=== PATIENT | female | born 1970 | race American Indian/Alaskan Native ===

== ENCOUNTER 2017-02-11 10:58 | Outpatient (CLI) | payer BC ==
--- NOTE | 2017-02-11 14:52 | Cat Scan Report ---
CT ABDOMEN AND PELVIS WITHOUT CONTRAST: 02/11/17 10:58:00 CLINICAL:Right-sided abdominal pain. COMPARISON: 11/05/15 TECHNIQUE: Volumetric acquisition and 1.25 millimeter axial scan reconstructions from the lung bases through the iliac crest. The study was performed with oral contrast only are to. FINDINGS: Abdomen:Clear lung bases. Normal liver, bile ducts and gallbladder. Status post gastric bypass with normal appearance of the stomach. Normal duodenum, pancreas and spleen. Normal adrenal glands and kidneys. The renal collecting systems and ureters are nondilated. No renal mass, cyst or calculus. No ascites and no pneumoperitoneum. The small bowel and colon are normal. An appendix is not identified. Rectus diastasis and a ventral abdominal mesh graft. 2 small supraumbilical ventral abdominal wall defects are unchanged. The largest is 2.3 cm wide the transverse colon is adjacent to the defect but bowel does not extend through the defect. Pelvis: Normal urinary bladder and rectum.Absence of uterus and normal vaginal cuff. The left ovary is enlarged and has homogeneous density measuring 42 Hounsfield units. It measures 4.8 x 4.2 x 4.4 cm. A right ovary is not identified. Bone windows demonstrate no suspicious bone lesion. IMPRESSION: 1. Status post gastric bypass. 2. 2 stable small supraumbilical ventral abdominal wall defects with no bowel extending through the defects. 3. Enlarged left ovary with no identifiable cyst. Recommend pelvic ultrasound for further evaluation.
== END 2017-02-11 10:59 | disposition home or self-care (01) ==
LOC: SPVIMAG 10:58
PROVIDERS: ATTEND Internal Medicine
DX: N83.8 Other noninflammatory disorders of ovary, fallopian tube and broad ligament (principal); Z90.710 Acquired absence of both cervix and uterus; Z98.890 Other specified postprocedural states
CPT/HCPCS: 74176

== ENCOUNTER 2020-07-25 09:54 | Outpatient (CLI) | payer BC ==
[2020-07-25 10:31] LABS: Hematocrit 36.8 % (30.3-42.9); Hemoglobin 12.5 gm/dl (10.1-14.3); Mean Corpuscular HGB Conc 34 % (30-34); Mean Corpuscular Volume 91 fl (79-97); Platelet Count 254 K/mm3 (140-440); Red Blood Count 4.03 M/mm3 (3.65-5.03); Red Cell Distribution Width 12.7 % (13.2-15.2)
[2020-07-25 10:35] LABS: Creatinine,Urine 303.3 mg/dL (0.1-20.0); Microalbumin/Creatinine Ratio 18.7 ug/mg
[2020-07-25 10:54] LABS: Alanine Aminotransferase 12 units/L (7-56); Blood Urea Nitrogen 12 mg/dL (7-17); Calcium 9.2 mg/dL (8.4-10.2); Chol/HDL Ratio 2.31 %; HDL Cholesterol 67 mg/dL (40-59); Hemolysis Index 5; LDL Cholesterol,Direct 85 mg/dL (50-130)
[2020-07-25 10:56] LABS: BUN/Creatinine Ratio 17
[2020-07-25 11:27] LABS: Free T4 (Free Thyroxine) 1.14 ng/dL (0.76-1.46)
[2020-07-28 14:14] LABS: Vitamin D, 25-OH, D2 <4 ng/mL
== END 2020-07-25 09:55 | disposition home or self-care (01) ==
LOC: LAB 09:54
PROVIDERS: ATTEND Internal Medicine
DX: I10 Essential (primary) hypertension (principal); E11.9 Type 2 diabetes mellitus without complications; E78.5 Hyperlipidemia, unspecified; E07.9 Disorder of thyroid, unspecified; E55.9 Vitamin D deficiency, unspecified; R53.83 Other fatigue; Z79.899 Other long term (current) drug therapy
CPT/HCPCS: 36415; 80053; 80061; 82043; 82306; 83036; 84439; 84443; 85027

== ENCOUNTER 2021-01-17 12:06 | Emergency (ER) | payer BC ==
--- NOTE | 2021-01-17 13:28 | Event Note ---
ED Screening Note Date of service: 01/17/21 Time: 13:26 ED Screening Note: 50-year-old female patient with history of diabetes and hypertension presents to the emergency department with complaints of nontraumatic left lower extremity pain starting last week. Patient has a history of sciatica but states this pain is different. No preceding fall or injury. No venous thromboembolism risk factors identified on history. No chest pain or shortness of breath. No numbness or paresthesias. No skin color changes. General: Awake, appropriately interactive, no acute distress. Neck: Supple. Full range of motion intact. Cardiovascular: Normal peripheral perfusion. No lower extremity edema. Pulmonary: No respiratory distress. Patient is speaking normally without use of accessory muscles. Skin: No apparent rashes or lesions. Neurological: No facial asymmetry. Speech is clear. Follows commands. Patient is alert and oriented. Musculoskeletal: Moves all four extremities spontaneously with normal range of motion. Psych: Cooperative. Appropriate mood and affect. Low pre-test probability for venous thromboembolism per Wells criteria; patient is an appropriate candidate for D-dimer testing. I have greeted and performed a focused rapid initial assessment of this patient. A comprehensive ED assessment and evaluation of the patient, analysis of all test results, and completion of the medical decision-making process will be conducted by additional ED providers. This initial assessment/diagnostic orders/clinical plan/treatment(s) is/are subject to change based on patients health status, clinical progression and re-assessment. Further treatment and workup at subsequent clinical provider's discretion. Patient/guardian urged not to elope from the ED as their condition may be serious if not clinically assessed and managed.
[2021-01-17 14:22] LABS: Basophils % (Auto) 0.4 % (0.0-1.8); Eosinophils # (Auto) 0.1 K/mm3 (0.0-0.4); Eosinophils % (Auto) 1.1 % (0.0-4.3); Hematocrit 37.8 % (30.3-42.9); Hemoglobin 12.9 gm/dl (10.1-14.3); Lymphocytes # (Auto) 1.7 K/mm3 (1.2-5.4); Mean Corpuscular HGB Conc 34 % (30-34); Mean Corpuscular Volume 91 fl (79-97); Monocytes # (Auto) 0.6 K/mm3 (0.0-0.8); Monocytes % (Auto) 9.3 % (0.0-7.3); Platelet Count 235 K/mm3 (140-440); Red Blood Count 4.16 M/mm3 (3.65-5.03); Red Cell Distribution Width 12.9 % (13.2-15.2)
[2021-01-17 14:30] LABS: Blood Urea Nitrogen 17 mg/dL (7-17); Calcium 9.5 mg/dL (8.4-10.2); Hemolysis Index 2
[2021-01-17 14:34] LABS: BUN/Creatinine Ratio 28
[2021-01-17] MEDS ORDERED: HYDROcodone/ACETAMINOPHEN 10-325MG TAB PO ONE (17:26)
[2021-01-17] MEDS ORDERED: KETOROLAC 60 MG/2 ML INJ IM ONE (17:26)
--- NOTE | 2021-01-17 18:36 | Emergency Department Report ---
ED Back Pain/Injury HPI - General Chief Complaint: Extremity Problem,Nontraumatic Stated Complaint: LT LEG PAIN Time Seen by Provider: 01/17/21 17:13 Source: patient Limitations: No Limitations - History of Present Illness Initial Comments: This is a 50-year-old female nontoxic, well nourished in appearance, no acute signs of distress presents to the ED with c/o of acute on chronic lower back pain with radiation to left lower leg x1 week. Patient states has history of sciatica nerve pain which is similar symptoms as today. Patient states that pain radiates through to his left lower extremity. Patient denies any trauma. Denies any bladder or bowel instability. Patient denies any urinary symptoms. Denies any fever, chills, nausea, vomiting, headache, stiff neck, chest pain or shortness of breath. Patient denies any numbness or tingling. Patient stated allergies to nitroglycerin. MD Complaint: back pain -: week(s) Similar Symptoms Previously: Yes Radiation: left leg Severity: mild Severity scale (0 -10): 8 Quality: aching Consistency: intermittent Improves With: immobilization, sitting upright Worsens With: movement, walking Context: while lifting, turning/twisting Associated Symptoms: denies other symptoms. denies: confusion, weakness, chest pain, numbness, difficulty walking, cough, difficulty urinating, diaphoresis, incontinence, fever/chills, constipation, headaches, abdominal pain, loss of appetite, malaise, nausea/vomiting, rash, seizure, shortness of breath, syncope - Related Data Home Medications Medication Instructions Recorded Confirmed Last Taken Metoprolol [Lopressor TAB] 100 mg PO DAILY 12/11/13 10/10/18 11/04/15 amLODIPine 10 mg PO DAILY 12/11/13 10/10/18 11/04/15 Atorvastatin Calcium [Lipitor] 20 mg PO DAILY 09/20/14 10/10/18 11/04/15 Multivitamin with Folic Acid [One 400 mcg PO DAILY 08/19/15 10/10/18 11/04/15 Daily Multivitamin Tablet] Calcium Carbonate/Vitamin D3 1 each PO DAILY 10/10/18 10/10/18 Unknown [Calcium 600-Vit D3 800 Caplet] Cholecalciferol (Vitamin D3) 3,000 unit PO DAILY 10/10/18 10/10/18 Unknown [Vitamin D3 3,000 unit] Glimepiride [Amaryl] 1 mg PO DAILY 10/10/18 10/10/18 Unknown Magnesium Oxide [Magnesium] 500 mg PO DAILY 10/10/18 10/10/18 Unknown Whiting-3 Fatty Acids/Fish Oil [Fish 1 each PO DAILY 10/10/18 10/10/18 Unknown Oil] Valsartan/Hydrochlorothiazide 1 each PO DAILY 10/10/18 10/10/18 Unknown [Diovan Hct 320-25 mg Tablet] Previous Rx's Medication Instructions Recorded Last Taken Type Famotidine [Pepcid] 10 mg PO BID #60 tablet 10/14/18 Unknown Rx Cyclobenzaprine [Flexeril] 10 mg PO QHS PRN #10 tablet 01/17/21 Unknown Rx Naproxen 500 mg PO Q12H PRN #12 tablet 01/17/21 Unknown Rx Allergies Allergy/AdvReac Type Severity Reaction Status Date / Time nitroglycerin AdvReac Shortness Verified 10/10/18 20:36 [From Nitroglyn] of Breath ED Review of Systems ROS: Stated complaint: LT LEG PAIN Other details as noted in HPI Constitutional: denies: chills, fever Eyes: denies: eye pain, eye discharge, vision change ENT: denies: ear pain, throat pain Respiratory: denies: cough, shortness of breath, wheezing Cardiovascular: denies: chest pain, palpitations Endocrine: no symptoms reported Gastrointestinal: denies: abdominal pain, nausea, diarrhea Genitourinary: denies: urgency, dysuria, discharge Musculoskeletal: back pain. denies: joint swelling, arthralgia Skin: denies: rash, lesions Neurological: denies: headache, weakness, paresthesias Psychiatric: denies: anxiety, depression Hematological/Lymphatic: denies: easy bleeding, easy bruising ED Past Medical Hx - Past Medical History Hx Hypertension: Yes Hx Heart Attack/AMI: No Hx Congestive Heart Failure: No Hx Diabetes: Yes Hx Deep Vein Thrombosis: No Hx GERD: Yes Hx Liver Disease: No Hx Seizures: No Hx Asthma: No Hx COPD: No Hx Dementia: No Additional medical history: History of anemia with recurrent blood transfusions for metromenorrhagia, however that has resolved since the hysterectomy. - Surgical History Hx Coronary Stent: No Hx Pacemaker: No Hx Internal Defibrillator: No Hx Breast Surgery: Yes (DEBORAH BREAST REDUCTION 2006) Additional Surgical History: Hysterectomy 2011, Gastric sleeve 2013 - Social History Smoking Status: Never Smoker Substance Use Type: None - Medications Home Medications: Home Medications Medication Instructions Recorded Confirmed Last Taken Type Metoprolol [Lopressor TAB] 100 mg PO DAILY 12/11/13 10/10/18 11/04/15 History amLODIPine 10 mg PO DAILY 12/11/13 10/10/18 11/04/15 History Atorvastatin Calcium [Lipitor] 20 mg PO DAILY 09/20/14 10/10/18 11/04/15 History Multivitamin with Folic Acid [One 400 mcg PO DAILY 08/19/15 10/10/18 11/04/15 History Daily Multivitamin Tablet] Calcium Carbonate/Vitamin D3 1 each PO DAILY 10/10/18 10/10/18 Unknown History [Calcium 600-Vit D3 800 Caplet] Cholecalciferol (Vitamin D3) 3,000 unit PO DAILY 10/10/18 10/10/18 Unknown History [Vitamin D3 3,000 unit] Glimepiride [Amaryl] 1 mg PO DAILY 10/10/18 10/10/18 Unknown History Magnesium Oxide [Magnesium] 500 mg PO DAILY 10/10/18 10/10/18 Unknown History Whiting-3 Fatty Acids/Fish Oil [Fish 1 each PO DAILY 10/10/18 10/10/18 Unknown History Oil] Valsartan/Hydrochlorothiazide 1 each PO DAILY 10/10/18 10/10/18 Unknown History [Diovan Hct 320-25 mg Tablet] Famotidine [Pepcid] 10 mg PO BID #60 tablet 10/14/18 Unknown Rx Cyclobenzaprine [Flexeril] 10 mg PO QHS PRN #10 tablet 01/17/21 Unknown Rx Naproxen 500 mg PO Q12H PRN #12 tablet 01/17/21 Unknown Rx ED Physical Exam - General Limitations: No Limitations General appearance: alert, in no apparent distress - Head Head exam: Present: atraumatic, normocephalic - Eye Eye exam: Present: normal appearance - Neck Neck exam: Present: normal inspection, full ROM - Respiratory Respiratory exam: Absent: respiratory distress - Cardiovascular Cardiovascular Exam: Present: regular rate - GI/Abdominal GI/Abdominal exam: Present: soft. Absent: distended, tenderness - Extremities Exam Extremities exam: Present: normal inspection, full ROM, tenderness, normal capillary refill. Absent: pedal edema, joint swelling, calf tenderness - Expanded Lower Extremity Exam Left Hip exam: Present: normal inspection, full ROM, external rotation, internal rotation, pelvic stability. Absent: tenderness, swelling, abrasion, laceration, ecchymosis, deformity, crepidus, dislocation, erythema, shortening Upper Leg exam: Present: normal inspection, full ROM, tenderness. Absent: swelling, abrasion, laceration, ecchymosis, deformity, crepidus, dislocation, erythema Knee exam: Present: normal inspection, full ROM, full knee extension. Absent: tenderness, swelling, abrasion, laceration, ecchymosis, deformity, crepidus, dislocation, erythema, effusion, pain w/ pronation/supination, posterior draw sign, pain/laxity with valgus, pain/laxity with varus Lower Leg exam: Present: normal inspection, full ROM, tenderness. Absent: swelling, abrasion, laceration, ecchymosis, deformity, crepidus, dislocation, erythema, palpable cord, Abad's sign Ankle exam: Present: normal inspection, full ROM. Absent: tenderness, swelling Foot/Toe exam: Present: normal inspection, full ROM. Absent: tenderness, swelling Neuro vascular tendon exam: Present: no vascular compromise Gait: Positive: observed and normal 1 - pain here 2 - pain here - Back Exam Back exam: Present: normal inspection, full ROM, paraspinal tenderness (lumbar paraspinal). Absent: tenderness, CVA tenderness (R), CVA tenderness (L), muscle spasm, vertebral tenderness, rash noted - Neurological Exam Neurological exam: Present: alert, oriented X3, normal gait - Psychiatric Psychiatric exam: Present: normal affect, normal mood - Skin Skin exam: Present: warm, dry, intact, normal color. Absent: rash ED Course Vital Signs 01/17/21 01/17/21 01/17/21 12:39 17:54 17:55 Temperature 98.7 F Pulse Rate 74 Respiratory 17 22 20 Rate Blood Pressure 192/100 Blood Pressure [Left] O2 Sat by Pulse 97 Oximetry 01/17/21 18:50 Temperature Pulse Rate 72 Respiratory 20 Rate Blood Pressure Blood Pressure 188/76 [Left] O2 Sat by Pulse 98 Oximetry - Reevaluation(s) Reevaluation #1: 01/17/21 18:39 Patient is speaking in full sentences with no signs of distress noted. ED Medical Decision Making - Lab Data Result diagrams: 01/17/21 13:51 01/17/21 13:51 Lab Results 01/17/21 01/17/21 01/17/21 Range/Units 13:51 13:51 13:51 WBC 6.6 (4.5-11.0) K/mm3 RBC 4.16 (3.65-5.03) M/mm3 Hgb 12.9 (10.1-14.3) gm/dl Hct 37.8 (30.3-42.9) % MCV 91 (79-97) fl MCH 31 (28-32) pg MCHC 34 (30-34) % RDW 12.9 L (13.2-15.2) % Plt Count 235 (140-440) K/mm3 Lymph % (Auto) 25.0 (13.4-35.0) % [place] % (Auto) 9.3 H (0.0-7.3) % Eos % (Auto) 1.1 (0.0-4.3) % Baso % (Auto) 0.4 (0.0-1.8) % Lymph # (Auto) 1.7 (1.2-5.4) K/mm3 [place] # (Auto) 0.6 (0.0-0.8) K/mm3 Eos # (Auto) 0.1 (0.0-0.4) K/mm3 Baso # (Auto) 0.0 (0.0-0.1) K/mm3 Seg Neutrophils % 64.2 (40.0-70.0) % Seg Neutrophils # 4.2 (1.8-7.7) K/mm3 D-Dimer 138.79 (0-234) ng/mlDDU Sodium 136 L (137-145) mmol/L Potassium 3.8 (3.6-5.0) mmol/L Chloride 97.4 L (98-107) mmol/L Carbon Dioxide 34 H (22-30) mmol/L Anion Gap 8 mmol/L BUN 17 (7-17) mg/dL Creatinine 0.6 (0.6-1.2) mg/dL Estimated GFR > 60 ml/min BUN/Creatinine Ratio 28 % Glucose 169 H (65-100) mg/dL Calcium 9.5 (8.4-10.2) mg/dL Urine Color (Yellow) Urine Turbidity (Clear) Urine pH (5.0-7.0) Ur Specific [place] (1.003-1.030) Urine Protein (Negative) mg/dL Urine Glucose (UA) (Negative) mg/dL Urine Ketones (Negative) mg/dL Urine Blood (Negative) Urine Nitrite (Negative) Urine Bilirubin (Negative) Urine Urobilinogen (<2.0) mg/dL Ur Leukocyte Esterase (Negative) Urine WBC (Auto) (0.0-6.0) /HPF Urine RBC (Auto) (0.0-6.0) /HPF U Epithel Cells (Auto) (0-13.0) /HPF Urine Bacteria (Auto) (Negative) /HPF Urine Mucus /HPF 01/17/21 Range/Units 18:19 WBC (4.5-11.0) K/mm3 RBC (3.65-5.03) M/mm3 Hgb (10.1-14.3) gm/dl Hct (30.3-42.9) % MCV (79-97) fl MCH (28-32) pg MCHC (30-34) % RDW (13.2-15.2) % Plt Count (140-440) K/mm3 Lymph % (Auto) (13.4-35.0) % [place] % (Auto) (0.0-7.3) % Eos % (Auto) (0.0-4.3) % Baso % (Auto) (0.0-1.8) % Lymph # (Auto) (1.2-5.4) K/mm3 [place] # (Auto) (0.0-0.8) K/mm3 Eos # (Auto) (0.0-0.4) K/mm3 Baso # (Auto) (0.0-0.1) K/mm3 Seg Neutrophils % (40.0-70.0) % Seg Neutrophils # (1.8-7.7) K/mm3 D-Dimer (0-234) ng/mlDDU Sodium (137-145) mmol/L Potassium (3.6-5.0) mmol/L Chloride (98-107) mmol/L Carbon Dioxide (22-30) mmol/L Anion Gap mmol/L BUN (7-17) mg/dL Creatinine (0.6-1.2) mg/dL Estimated GFR ml/min BUN/Creatinine Ratio % Glucose (65-100) mg/dL Calcium (8.4-10.2) mg/dL Urine Color Yellow (Yellow) Urine Turbidity Clear (Clear) Urine pH 5.0 (5.0-7.0) Ur Specific [place] 1.021 (1.003-1.030) Urine Protein <15 mg/dl (Negative) mg/dL Urine Glucose (UA) Neg (Negative) mg/dL Urine Ketones Neg (Negative) mg/dL Urine Blood Neg (Negative) Urine Nitrite Neg (Negative) Urine Bilirubin Neg (Negative) Urine Urobilinogen < 2.0 (<2.0) mg/dL Ur Leukocyte Esterase Neg (Negative) Urine WBC (Auto) 3.0 (0.0-6.0) /HPF Urine RBC (Auto) 2.0 (0.0-6.0) /HPF U Epithel Cells (Auto) 3.0 (0-13.0) /HPF Urine Bacteria (Auto) 2+ (Negative) /HPF Urine Mucus Few /HPF - Medical Decision Making This is a 50-year-old female that presents with low back strain with sciatica. Patient is stable was examined by me. Lab results has been reviewed with the patient with no questions noted by the patient.Patient does have history of hypertension and follows PCP for this. There is no spinal tenderness. There is no cauda equina syndrome during examination. No bladder or bowel instability. Patient received Toradol 60 mg IM and [place] in the ED which stated that her symptoms has resolved and subsided. Patient is discharged with muscle relaxant and naproxen. Patient was instructed not to operate any machinery while taking muscle relaxant as they cause her drowsiness. Patient was referred to Follow-up with a primary care doctor in 3-5 days or if symptoms worsen and continue return to emergency room as soon as possible. At time of discharge, the patient does not seem toxic or ill in appearance. No acute signs of distress noted. Patient agrees to discharge treatment plan of care. No further questions noted by the patient. According to ACEP: (1) in ED patients with asymptomatic markedly elevated blood pressure, routine screening for acute target organ injury (eg, serum creatinine, urinalysis, ECG) is not required. (1) In patients with asymptomatic markedly elevated blood pressure, routine ED medical intervention is not required. This chart is dictated with using [employer] Critical care attestation.: If time is entered above; I have spent that time in minutes in the direct care of this critically ill patient, excluding procedure time. ED Disposition Clinical Impression: Low back strain Qualifiers: Encounter type: initial encounter Qualified Code(s): S39.012A - Strain of muscle, fascia and tendon of lower back, initial encounter Sciatica Qualifiers: Laterality: left Qualified Code(s): M54.32 - Sciatica, left side Disposition: TO HOME OR SELFCARE Is pt being admited?: No Does the pt Need Aspirin: No Condition: Stable Instructions: Cyclobenzaprine tablets, Lumbar Sprain, Sciatica, [id number] Additional Instructions: Follow-up with your primary care doctor in 3-5 days or if symptoms worsen such as bladder or bowel stability, chest pain, short of breath, numbness or tingling sensation in extremities, headache, dizziness, visual changes, nausea vomiting, or abdominal pain, return back to emergency room as was possible. Take naproxen and Flexeril as prescribed. Do not operate heavy machinery while taking Flexeril due to sedation Prescriptions: Cyclobenzaprine [Flexeril] 10 mg PO QHS PRN #10 tablet PRN Reason: Muscle Spasm Naproxen 500 mg PO Q12H PRN #12 tablet PRN Reason: Pain , Severe (7-10) Referrals: MOSHE JOHNSON MD [Primary Care Provider] - 3-5 Days PRIMARY CARE, [Referring] - 3-5 Days DAVIS GARCIA MD [Staff Physician] - 3-5 Days Forms: Work/School Release Form(ED) Time of Disposition: 18:45
[2021-01-17 18:42] LABS: Bacteria,Urine 2+ /HPF (Negative); Bilirubin,Urine NEG (Negative); Blood,Urine NEG (Negative); Color,Urine Yellow (Yellow); Mucus,Urine FEW /HPF; Protein,Urine <15 mg/dL mg/dL (Negative); Urobilinogen,Urine < 2.0 mg/dL (<2.0)
[2021-01-17 18:51] VITALS: BP 188/76
== END 2021-01-17 18:56 | disposition home or self-care (01) ==
LOC: ED 12:06
DX: S39.012A Strain of muscle, fascia and tendon of lower back, initial encounter (principal); M54.32 Sciatica, left side; E11.9 Type 2 diabetes mellitus without complications; D64.9 Anemia, unspecified; Z90.710 Acquired absence of both cervix and uterus; Z79.899 Other long term (current) drug therapy; Z88.8 Allergy status to other drugs, medicaments and biological substances; Z98.890 Other specified postprocedural states; X58.XXXA Exposure to other specified factors, initial encounter; Y93.89 Activity, other specified; Y92.89 Other specified places as the place of occurrence of the external cause; Y99.8 Other external cause status
CPT/HCPCS: 36415; 80048; 81001; 85025; 85379; 96372; 99283; J1885

== ENCOUNTER 2021-01-24 09:48 | Outpatient (CLI) | payer BC ==
[2021-01-24 10:34] LABS: Hematocrit 37.6 % (30.3-42.9); Hemoglobin 12.8 gm/dl (10.1-14.3); Mean Corpuscular HGB Conc 34 % (30-34); Mean Corpuscular Volume 92 fl (79-97); Platelet Count 239 K/mm3 (140-440); Red Blood Count 4.08 M/mm3 (3.65-5.03); Red Cell Distribution Width 12.9 % (13.2-15.2)
[2021-01-24 11:46] LABS: Alanine Aminotransferase 17 units/L (7-56); Albumin 3.9 g/dL (3.9-5); BUN/Creatinine Ratio 28; Blood Urea Nitrogen 17 mg/dL (7-17); Calcium 9.4 mg/dL (8.4-10.2); Chol/HDL Ratio 2.34 %; HDL Cholesterol 69 mg/dL (40-59); Hemolysis Index 2; LDL Cholesterol,Direct 98 mg/dL (50-130)
[2021-01-24 12:28] LABS: Creatinine,Urine 100.3 mg/dL (0.1-20.0)
[2021-01-24 12:29] LABS: Microalbumin/Creatinine Ratio 23.9 ug/mg
== END 2021-01-24 09:49 | disposition home or self-care (01) ==
LOC: LAB 09:48
PROVIDERS: ATTEND Internal Medicine
DX: R07.9 Chest pain, unspecified (principal); E78.5 Hyperlipidemia, unspecified; E55.9 Vitamin D deficiency, unspecified; R53.83 Other fatigue; Z79.899 Other long term (current) drug therapy
CPT/HCPCS: 36415; 80053; 80061; 82043; 83036; 84443; 85027

== ENCOUNTER 2022-02-20 09:03 | Outpatient (CLI) | payer BC ==
--- NOTE | 2022-02-21 11:37 | Mammography Report ---
DIGITAL SCREENING MAMMOGRAM WITH CAD, 02/20/2022 CLINICAL INFORMATION / INDICATION: Routine screening TECHNIQUE: Digital bilateral 2D mammography was obtained in the craniocaudal and mediolateral obliqu e projections. This examination was interpreted with the benefit of Computer-Aided Detection analysis . COMPARISON: 08/20/2018 FINDINGS: Breast Density: The breasts are almost entirely fatty. No dominant mass, suspicious calcifications, or architectural distortion in the right breast. In the central left breast mid depth, at 10:00 to 3 cm from the nipple, a new 9 mm nodule is seen. IMPRESSION: New nodule on the left Follow up recommendation: Left breast ultrasound and additional mammographic views if needed BI-RADS Category 0: INCOMPLETE. Needs additional imaging evaluation and/or prior mammograms for aditi artemon. A "normal" or negative report should not discourage follow up or biopsy of a clinically significant f inding. A written summary of these findings will be mailed to the patient. The patient will be entered into a mammography reporting system which will generate a reminder letter for the patient's next appointmen t at the appropriate interval. The [employer] recommends yearly mammograms starting at age 40 and continuing as l yesica as a woman is in good health. Breast MRI is recommended for women with an approximate 20-25% or greater lifetime risk of breast cancer, including women with a strong family history of breast or ova sigrid cancer or who have been treated for Hodgkin's disease. Signer Name: Chad Clement MD Signed: 02/21/2022 11:33 AM Workstation Name: [id number]
== END 2022-02-20 09:04 | disposition home or self-care (01) ==
LOC: SPVWC 09:03 → EEVIPCON 09:03 → SPVWC 09:04
PROVIDERS: ATTEND Obstetrics & Gynecology
DX: Z12.31 Encounter for screening mammogram for malignant neoplasm of breast (principal); N63.22 Unspecified lump in the left breast, upper inner quadrant
CPT/HCPCS: 77067

== ENCOUNTER 2022-03-14 08:29 | Outpatient (CLI) | payer BC ==
--- NOTE | 2022-03-14 10:38 | XRay Report ---
LUMBAR SPINE 5 VIEWS INDICATION / CLINICAL INFORMATION: LUMBAGO. COMPARISON: None available. FINDINGS: BONES / JOINT(S): No acute fracture or subluxation. Moderate degenerative disc disease at L5-S1. Othe rwise mild generalized spondylosis. Grade 1 degenerative anterolisthesis at L4-5 that slightly increa ses with flexion. SOFT TISSUES: No significant abnormality. ADDITIONAL FINDINGS: None. Signer Name: Jonathon Goel MD Signed: 03/14/2022 10:33 AM Workstation Name: [id number]
== END 2022-03-14 08:30 | disposition home or self-care (01) ==
LOC: XRAY 08:29
PROVIDERS: ATTEND Internal Medicine
DX: M51.37 Other intervertebral disc degeneration, lumbosacral region (principal)
CPT/HCPCS: 72110

== ENCOUNTER 2022-03-19 08:10 | Day surgery (SDC) | payer BC ==
[~2022-03-19 08:10] MED LIST: SODIUM CHLORIDE 0.9% 1000 ML 1,000 ML IV SCH
--- NOTE | 2022-03-19 08:40 | Anesthesia Day of Surgery ---
Anesthesia Day of Surgery - Day of Surgery Patient Examined: Yes Patient H&P Reviewed: Yes Patient is NPO: Yes
--- NOTE | 2022-03-19 08:44 | Anesthesia Consultation ---
Anesthesia Consult and Med Hx Date of service: 03/19/22 - Airway Anesthetic Teeth Evaluation: Good ROM Head & Neck: Adequate Mental/Hyoid Distance: Adequate Mallampati Class: Class I Intubation Access Assessment: Good - Pulmonary Exam CTA: Yes - Cardiac Exam Cardiac Exam: RRR - Pre-Operative Health Status ASA Pre-Surgery Classification: ASA3 Proposed Anesthetic Plan: MAC - Pulmonary Hx Smoking: No Hx Asthma: No COPD: No Hx Pneumonia: No Hx Sleep Apnea: No (possible) - Cardiovascular System Hx Hypertension: Yes Hx Coronary Artery Disease: No Hx Heart Attack/AMI: No Hx Angina: No (history of chest pain) Hx Percutaneous Transluminal Coronary Angioplasty (PTCA): No Hx Pacemaker: No Hx Internal Defibrillator: No Hx Valvular Heart Disease: No Hx Heart Murmur: No Hx Peripheral Vascular Disease: No - Central Nervous System Hx Seizures: No CVA: Yes (2013, no residual effects) - Gastrointestinal Hx Gastroesophageal Reflux Disease: Yes (controlled) - Endocrine Hx End Stage Renal Disease: No Hx Liver Disease: No Hx Insulin Dependent Diabetes: No Hx Non-Insulin Dependent Diabetes: Yes Hx Hypothyroidism: No Hx Hyperthyroidism: No - Hematic Hx Anemia: Yes - Other Systems Hx Cancer: No Hx Obesity: Yes
[2022-03-19] MEDS ORDERED: propofoL 200 MG/20 ML VIAL IV ONE ×3 (08:49→09:41)
[2022-03-19] MEDS ORDERED: LIDOCAINE MPF (2%) 20 MG/1 ML VIAL 5 ML ONE (08:49)
--- NOTE | 2022-03-19 09:32 | Short Stay Summary ---
Short Stay Documentation Date of service: 03/19/22 Narrative H&P: The patient presents for colonoscopy for a history of colon polyps over 10 years ago. - History Past Medical History: diabetes, hypertension, hyperlipidemia Past Surgical History: hysterectomy, bowel surgery, Other (Gastric sleeve, surgery for bowel obstruction, breast reduction) Social history: no significant social history, no smoking, no alcohol abuse - Allergies and Medications Current Medications: Allergies nitroglycerin [From Nitroglyn] Adverse Reaction (Verified 10/10/18 20:36) Shortness of Breath Home Medications Medication Instructions Recorded Confirmed Last Taken Type Metoprolol [Lopressor TAB] 100 mg PO DAILY 12/11/13 10/10/18 11/04/15 History amLODIPine 10 mg PO DAILY 12/11/13 10/10/18 11/04/15 History Atorvastatin Calcium [Lipitor] 20 mg PO DAILY 09/20/14 10/10/18 11/04/15 History Multivitamin with Folic Acid [One 400 mcg PO DAILY 08/19/15 10/10/18 11/04/15 History Daily Multivitamin Tablet] Calcium Carbonate/Vitamin D3 1 each PO DAILY 10/10/18 10/10/18 Unknown History [Calcium 600-Vit D3 800 Caplet] Cholecalciferol (Vitamin D3) 3,000 unit PO DAILY 10/10/18 10/10/18 Unknown History [Vitamin D3 3,000 unit] Glimepiride [Amaryl] 1 mg PO DAILY 10/10/18 10/10/18 Unknown History Magnesium Oxide [Magnesium] 500 mg PO DAILY 10/10/18 10/10/18 Unknown History [place]-3 Fatty Acids/Fish Oil [Fish 1 each PO DAILY 10/10/18 10/10/18 Unknown History Oil] Valsartan/Hydrochlorothiazide 1 each PO DAILY 10/10/18 10/10/18 Unknown History [Diovan Hct 320-25 mg Tablet] Famotidine [Pepcid] 10 mg PO BID #60 tablet 10/14/18 Unknown Rx Cyclobenzaprine [Flexeril] 10 mg PO QHS PRN #10 tablet 01/17/21 Unknown Rx Naproxen 500 mg PO Q12H PRN #12 tablet 01/17/21 Unknown Rx Active Medications Sodium Chloride (Nacl 0.9% 1000 Ml) 1,000 mls @ 50 mls/hr IV DIRECT ROBEL - Physical exam General appearance: no acute distress, well-nourished, obese Integumentary: no rash, no growths, no abnormal pigmentation HEENT: Atraumatic, PERRLA, EOMI, Mucous membr. moist/pink Lungs: Clear to auscultation, Normal air movement Breasts: deferred Heart: Regular rate, Normal S1, Normal S2, No murmurs Gastrointestinal: normoactive bowel sounds, no tenderness, no distended, no masses, no guarding, obese Female Genitourinary: deferred Rectal Exam: normal rectal tone, no tenderness, no mass Extremities: no ischemia, pulses intact, pulses symmetrical, No edema, normal temperature, normal color, Full ROM Neurological: Normal gait, Normal speech, Strength at 5/5 X4 ext, Normal tone, Sensation intact, Cranial nerves 3-12 NL - Brief post op/procedure progress note Date of procedure: 03/19/22 Findings: see dictation Estimated blood loss: none Pathology: none Specimen disposition: to lab Condition: stable - Disposition Condition at discharge: Good Disposition: 01 HOME / SELF CARE / HOMELESS Short Stay Discharge Plan Activity: other (No driving for 24 hours.) Weight Bearing Status: Weight Bear as Tolerated Diet: diabetic Follow up with: MOSHE JOHNSON MD [Primary Care Provider] - 7 Days
--- NOTE | 2022-03-19 09:34 | Operative Report ---
Operative Report Operative Report: Date of procedure: 03/19/2022 Preprocedure diagnosis: History of colon polyp, last study over 10 years ago. Post procedure diagnosis: Normal study Procedure: Colonoscopy to the cecum Endoscopist: Dr. Epstein Anesthesia: Monitored anesthesia care per anesthesia department Estimated blood loss: 0 Medications: Monitored anesthesia care. See separate report by anesthesia for details. After careful discussion of the nature and purpose of the procedure as well as details of the technique risks benefits and alternatives the patient gave consent. Please see recent history and physical from the office. The patient was placed in the left lateral decubitus position and medicated per anesthesia. A rectal exam was performed sphincter tone was normal there were no masses palpable. The Relayrn 570 scope was passed transanally and advanced under continuous direct vision without difficulty to the cecum. The colon was well prepared. The cecum was normal. The ascending colon was normal and on forward and retroflexed views. The transverse colon, descending colon, and sigmoid colon were normal. The rectum was normal on forward and retroflexed views. The procedure was well-tolerated overall and the patient was observed in recovery. Conclusions: Normal colonoscopy to the cecum. Plan: Repeat colonoscopy in 5 to 10 years. Signed electronically: Rui Epstein M.D.
--- NOTE | 2022-03-19 11:00 | Post Anesthesia Evaluation ---
- Post Anesthesia Evaluation Patient Participated: Yes Airway Patent: Yes Stable Respiratory Function: Yes Nausea/Vomiting: No Temp > 96.8F: Yes Pain Manageable: Yes Adequeate Hydration: Yes Anesthesia Complications: No
[2022-03-19 18:21] VITALS: BP 124/74
== END 2022-03-19 10:00 | disposition home or self-care (01) ==
LOC: GIO 08:10
PROVIDERS: ATTEND Internal Medicine Gastroenterology
DX: Z12.11 Encounter for screening for malignant neoplasm of colon (principal); I10 Essential (primary) hypertension; E11.9 Type 2 diabetes mellitus without complications; E66.01 Morbid (severe) obesity due to excess calories; K21.9 Gastro-esophageal reflux disease without esophagitis; Z79.899 Other long term (current) drug therapy; Z68.42 Body mass index [BMI] 45.0-49.9, adult; Z88.8 Allergy status to other drugs, medicaments and biological substances; Z90.710 Acquired absence of both cervix and uterus; Z90.711 Acquired absence of uterus with remaining cervical stump; Z86.010 Personal history of colon polyps; Z98.890 Other specified postprocedural states; Z86.73 Personal history of transient ischemic attack (TIA), and cerebral infarction without residual deficits
CPT/HCPCS: 45378; 82962; J2704; J7030

== ENCOUNTER 2022-03-29 12:38 | Outpatient (CLI) | payer BC ==
--- NOTE | 2022-03-29 14:49 | Mammography Report ---
LEFT DIGITAL DIAGNOSTIC MAMMOGRAM WITH CAD CONVENTIONAL, 03/29/2022 LEFT LIMITED BREAST ULTRASOUND CLINICAL INFORMATION / INDICATION: Patient presents as a callback from screening mammogram for furthe r evaluation of a new oval mass in the left breast. TECHNIQUE: Digital left mammographic imaging was performed. Spot compression views were obtained. Resendez ited ultrasound was performed. This examination was interpreted with the benefit of Computer-Aided De tection (CAD) analysis. COMPARISON: Prior mammogram 02/20/2022 FINDINGS: Breast Density: The breasts are almost entirely fatty. MAMMOGRAPHIC FINDINGS: Spot compression views reveal a persistent 7 mm low-density oval circumscribed mass in the central left breast, middle depth. This does not definitively correspond with the sonogr aphic finding, which was marked with a metallic BB prior to obtaining spot compression views. ULTRASOUND FINDINGS: Targeted ultrasound evaluation was performed of the area of interest. Targeted ultrasound of the left breast reveals a 4 mm benign cyst in the 10:00 position located 6 cm from the nipple. This does not definitively correspond with the mammographic finding. There is no sonographic correlate for the small nodule seen on mammogram. IMPRESSION: 1. There is a persistent small benign-appearing nodule in the central left breast without definite so nographic correlate identified. This is considered probably benign and may reflect a benign oil cyst. Recommend left diagnostic mammogram in 6 months to ensure stability. Follow up recommendation: Short term follow up in 6 months. BI-RADS Category 3: PROBABLY BENIGN. Followup in 6 months. A "normal" or negative report should not discourage follow up or biopsy of a clinically significant f inding. A written summary of these findings will be mailed to the patient. The patient will be entered into a mammography reporting system which will generate a reminder letter for the patient's next appointmen t at the appropriate interval. According to the [employer], yearly mammograms are recommended starting at age 40 and continuing as long as a woman is in good health. Breast MRI is recommended for women with an shara roximately 20-25% or greater lifetime risk of breast cancer, including women with a strong family his tory of breast or ovarian cancer and women who have been treated for Hodgkin's disease. Signer Name: Kayleigh Bal MD Signed: 03/29/2022 2:45 PM Workstation Name: [email or web address]
--- NOTE | 2022-03-30 12:04 | Magnetic Resonance Report ---
MR lumbar spine wo con INDICATION / CLINICAL INFORMATION: 51 years Female; M51.17. Low back and left leg pain TECHNIQUE: Multisequence, multiplanar images of the lumbar spine were obtained. COMPARISON: None available. FINDINGS: ALIGNMENT: Minimal listhesis seen at L4-5. VERTEBRAE:Mild loss of height seen anteriorly at T12, which appears to be on a chronic basis - no mar row edema seen. VISUALIZED SPINAL CORD: See below. Conus is grossly normal in appearance. INTERVERTEBRAL DISCS: Multilevel disc desiccation noted. [id number] ANALYSIS: T10-11: Mild to moderate disc bulge by sagittal imaging. There is mild canal narrowing and mild david inal narrowing bilaterally. T11-12: Moderate disc bulge and facet hypertrophy, by sagittal imaging. Mild to moderate canal narrow ing without cord impingement. Moderate foraminal narrowing bilaterally with encroachment upon T11 ner ves. No impingement. L1-2: Minimal disc bulge and [id number] facet hypertrophy. L2-3: Mild to moderate facet hypertrophy. L3-4: Mild to moderate disc bulge and left paracentral disc protrusion. Mild to moderate facet hypert rophy. Mild to moderate foraminal narrowing on the left and mild on the right. L4-5: Mild to moderate disc bulge. Moderate to marked facet and borderline ligamentum flavum hypertro phy. Widened facet joints noted at this level. Flexion and extension views of the lumbar spine may be helpful in evaluating for segmental instability. Mild canal narrowing. Moderate foraminal narrowing bilaterally with encroachment upon L4 nerves. No impingement. L5-S1: Mild disc bulge and left paracentral/subarticular zone disc extrusion seen, with disc material extending to the pedicular level of S1. Mild to moderate facet hypertrophy. Moderate foraminal narro wing bilaterally with encroachment upon L5 nerves. No impingement. PARASPINAL SOFT TISSUES: Synovial cysts project posteriorly from the L4-5 facet joints along the infe rior margin, right more prominent than left. These findings do not affect the vertebral canal. ADDITIONAL FINDINGS: None. IMPRESSION: 1. Degenerative changes of the lumbar spine as described above. Most marked findings appear to be at L4-5, followed by L5-S1 and L3-4, as well as T11-12. Please correlate with dermatomal distribution of patient's symptoms, if present. Signer Name: Pierre Jackson MD, III Signed: 03/30/2022 11:59 AM Workstation Name: [id number]
== END 2022-03-29 12:39 | disposition home or self-care (01) ==
LOC: MAMMO 12:38
PROVIDERS: ATTEND Obstetrics & Gynecology
DX: N60.02 Solitary cyst of left breast (principal); N63.24 Unspecified lump in the left breast, lower inner quadrant; M51.17 Intervertebral disc disorders with radiculopathy, lumbosacral region; M51.15 Intervertebral disc disorders with radiculopathy, thoracolumbar region; M48.07 Spinal stenosis, lumbosacral region; M47.817 Spondylosis without myelopathy or radiculopathy, lumbosacral region
CPT/HCPCS: 72148

== ENCOUNTER 2022-06-04 07:55 | Emergency (ER) | payer BC ==
[2022-06-04 08:37] VITALS: BP 170/96
--- NOTE | 2022-06-04 09:01 | Emergency Department Report ---
ED Lower Extremity HPI - General Chief Complaint: Extremity Injury, Lower Stated Complaint: PAIN IN CALF Time Seen by Provider: 06/04/22 08:38 Source: patient Mode of arrival: Ambulatory Limitations: No Limitations - History of Present Illness Initial Comments: 51 yo comes to ER with right calf pain and swelling x 4 days. no trauma/fall. no cp. no sob. no fever/chills. pos obese/ on no hormones/ no prolonged inactivity pt is covid immunized MD Complaint: other Improves With: nothing Worsens With: movement - Related Data Home Medications Medication Instructions Recorded Confirmed Last Taken Metoprolol [Lopressor TAB] 100 mg PO DAILY 12/11/13 10/10/18 11/04/15 amLODIPine 10 mg PO DAILY 12/11/13 10/10/18 11/04/15 Atorvastatin Calcium [Lipitor] 20 mg PO DAILY 09/20/14 10/10/18 11/04/15 Multivitamin with Folic Acid [One 400 mcg PO DAILY 08/19/15 10/10/18 11/04/15 Daily Multivitamin Tablet] Calcium Carbonate/Vitamin D3 1 each PO DAILY 10/10/18 10/10/18 Unknown [Calcium 600-Vit D3 800 Caplet] Cholecalciferol (Vitamin D3) 3,000 unit PO DAILY 10/10/18 10/10/18 Unknown [Vitamin D3 3,000 unit] Glimepiride [Amaryl] 1 mg PO DAILY 10/10/18 10/10/18 Unknown Magnesium Oxide [Magnesium] 500 mg PO DAILY 10/10/18 10/10/18 Unknown [place]-3 Fatty Acids/Fish Oil [Fish 1 each PO DAILY 10/10/18 10/10/18 Unknown Oil] Valsartan/Hydrochlorothiazide 1 each PO DAILY 10/10/18 10/10/18 Unknown [Diovan Hct 320-25 mg Tablet] Previous Rx's Medication Instructions Recorded Last Taken Type Famotidine [Pepcid] 10 mg PO BID #60 tablet 10/14/18 Unknown Rx Cyclobenzaprine [Flexeril 10 MG 10 mg PO QHS PRN #10 tablet 01/17/21 Unknown Rx TAB] Naproxen 500 mg PO Q12H PRN #12 tablet 01/17/21 Unknown Rx Allergies Allergy/AdvReac Type Severity Reaction Status Date / Time nitroglycerin AdvReac Shortness Verified 10/10/18 20:36 [From Nitroglyn] of Breath ED Review of Systems ROS: Stated complaint: PAIN IN CALF Other details as noted in HPI Comment: All other systems reviewed and negative ED Past Medical Hx - Past Medical History Previous Medical History?: Yes Hx Hypertension: Yes Hx Heart Attack/AMI: No Hx Congestive Heart Failure: No Hx Diabetes: Yes Hx Deep Vein Thrombosis: No Hx GERD: Yes Hx Liver Disease: No Hx Seizures: No Hx Asthma: No Hx COPD: No Hx Dementia: No Additional medical history: History of anemia with recurrent blood transfusions for metromenorrhagia, however that has resolved since the hysterectomy. - Surgical History Past Surgical History?: Yes Hx Coronary Stent: No Hx Pacemaker: No Hx Internal Defibrillator: No Hx Breast Surgery: Yes (DEBORAH BREAST REDUCTION 2006) Additional Surgical History: Hysterectomy 2011, Gastric sleeve 2013 - Family History Family history: no significant - Social History Smoking Status: Never Smoker Substance Use Type: None - Medications Home Medications: Home Medications Medication Instructions Recorded Confirmed Last Taken Type Metoprolol [Lopressor TAB] 100 mg PO DAILY 12/11/13 10/10/18 11/04/15 History amLODIPine 10 mg PO DAILY 12/11/13 10/10/18 11/04/15 History Atorvastatin Calcium [Lipitor] 20 mg PO DAILY 09/20/14 10/10/18 11/04/15 History Multivitamin with Folic Acid [One 400 mcg PO DAILY 08/19/15 10/10/18 11/04/15 History Daily Multivitamin Tablet] Calcium Carbonate/Vitamin D3 1 each PO DAILY 10/10/18 10/10/18 Unknown History [Calcium 600-Vit D3 800 Caplet] Cholecalciferol (Vitamin D3) 3,000 unit PO DAILY 10/10/18 10/10/18 Unknown History [Vitamin D3 3,000 unit] Glimepiride [Amaryl] 1 mg PO DAILY 10/10/18 10/10/18 Unknown History Magnesium Oxide [Magnesium] 500 mg PO DAILY 10/10/18 10/10/18 Unknown History [place]-3 Fatty Acids/Fish Oil [Fish 1 each PO DAILY 10/10/18 10/10/18 Unknown History Oil] Valsartan/Hydrochlorothiazide 1 each PO DAILY 10/10/18 10/10/18 Unknown History [Diovan Hct 320-25 mg Tablet] Famotidine [Pepcid] 10 mg PO BID #60 tablet 10/14/18 Unknown Rx Cyclobenzaprine [Flexeril 10 MG 10 mg PO QHS PRN #10 tablet 01/17/21 Unknown Rx TAB] Naproxen 500 mg PO Q12H PRN #12 tablet 01/17/21 Unknown Rx ED Physical Exam - General Limitations: No Limitations General appearance: alert, in no apparent distress - Head Head exam: Present: atraumatic, normocephalic - Eye Eye exam: Present: normal appearance - ENT ENT exam: Present: mucous membranes moist - Neck Neck exam: Present: normal inspection - Respiratory Respiratory exam: Present: normal lung sounds bilaterally. Absent: respiratory distress - Cardiovascular Cardiovascular Exam: Present: regular rate, normal rhythm. Absent: systolic murmur, diastolic murmur, rubs, gallop - GI/Abdominal GI/Abdominal exam: Present: soft, normal bowel sounds - Extremities Exam Extremities exam: Present: normal inspection - Expanded Lower Extremity Exam Right Lower Leg exam: Present: tenderness, swelling Ankle exam: Present: swelling - Back Exam Back exam: Present: normal inspection - Neurological Exam Neurological exam: Present: alert, oriented X3 - Psychiatric Psychiatric exam: Present: normal affect, normal mood - Skin Skin exam: Present: warm, dry, intact, normal color. Absent: rash ED Course Vital Signs 06/04/22 08:33 Temperature 97.8 F Pulse Rate 73 Respiratory 14 Rate Blood Pressure 170/96 [Right] O2 Sat by Pulse 98 Oximetry ED Lower Extremity MDM - Radiology Data Radiology results: report reviewed, image reviewed see report - Medical Decision Making Vital Signs 06/04/22 08:33 Temperature 97.8 F Pulse Rate 73 Respiratory 14 Rate Blood Pressure 170/96 [Right] O2 Sat by Pulse 98 Oximetry mild RLE swelling pos calf pain no tachycardia no cp no sob no hypotension no hx dvt no hormone therapy/inactivity/ pos obesity US noted I've called Dr Parker, vascular, and he has reviewed images- pt will dc home with no AC at time. He will see her in 1-2 w for interval scan. No DVT visable on us down to the calf per report. Pt verbalizes understanding of plan of care including diet, meds, activity and follow up. 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 - Differential Diagnosis ro dvt/spasm Critical care attestation.: If time is entered above; I have spent that time in minutes in the direct care of this critically ill patient, excluding procedure time. ED Disposition Clinical Impression: Leg swelling Disposition: 01 HOME / SELF CARE / HOMELESS Is pt being admited?: No Does the pt Need Aspirin: No Condition: Stable Additional Instructions: follow up with Dr Parker as we discussed Referrals: ABRAN PARKER MD [Staff Physician] - 3-5 Days Forms: Work/School Release Form(ED) Time of Disposition: 11:56
--- NOTE | 2022-06-04 10:32 | Vascular Lab Report ---
DUPLEX DOPPLER LOWER EXTREMITY VEINS, RIGHT INDICATION / CLINICAL INFORMATION: swelling. TECHNIQUE: Duplex doppler imaging was performed through the veins of the right lower extremity using venous compression and other maneuvers. COMPARISON: None available. FINDINGS: RIGHT COMMON FEMORAL VEIN: Negative. RIGHT FEMORAL VEIN: Negative. RIGHT POPLITEAL VEIN: Negative. RIGHT CALF VEINS: Negative. ADDITIONAL FINDINGS: There is a 2.8 x 0.8 cm popliteal cyst. IMPRESSION: 1. No sonographic evidence for DVT in the right lower extremity. Signer Name: Sajan Varela MD Signed: 06/04/2022 10:28 AM Workstation Name: [id number]
== END 2022-06-04 17:16 | disposition home or self-care (01) ==
LOC: ED 07:55
DX: R60.0 Localized edema (principal); I10 Essential (primary) hypertension; E11.9 Type 2 diabetes mellitus without complications; K21.9 Gastro-esophageal reflux disease without esophagitis; Z90.710 Acquired absence of both cervix and uterus; Z88.8 Allergy status to other drugs, medicaments and biological substances; Z79.899 Other long term (current) drug therapy
CPT/HCPCS: 99283